=== PATIENT | male | born 1935 | race Caucasian/White ===

== ENCOUNTER 2023-07-28 16:06 | Inpatient (IN) ==
[2023-07-28 16:48] LABS: ABS Lymphocytes 0.5 10^3/uL (1.0-4.8); ABS Monocytes 0.7 10^3/uL (0.0-1.1); ABS Neutrophils 12.4 10^3/uL (1.5-7.6); ABS Nucleated RBC 0.01 10^3/ul; Eosinophil % 0.1 %; Hematocrit 40.3 % (38-53); Hemoglobin 13.3 g/dL (13.2-16.3); Lymphocyte % 3.8 %; Mean Corpuscular Hemoglobin 32.8 pg (27-33); Mean Corpuscular Hgb Conc 33.2 g/dL (31-36); Mean Corpuscular Volume 99.1 fL (80-97); Mean Platelet Volume 8.4 fL (7.5-11.2); Platelet Count 189 10^3/uL (150-450); Red Blood Count 4.06 10^6/uL (4.06-5.63); Red Cell Distribution Width 14.4 % (12-17); White Blood Count 13.7 10^3/uL (3.6-10.2)
[2023-07-28 16:56] LABS: INR 1.15 (0.83-1.13)
[2023-07-28 17:09] LABS: Albumin 4.2 g/dL (3.2-5.2); Albumin/Globulin Ratio 1.4 (1-3); C Reactive Protein 218.31 mg/L (<8.01); Calcium 9.4 mg/dL (8.6-10.3); Creatinine, Serum 2.18 mg/dL (0.67-1.17); Potassium 4.7 mmol/L (3.5-5.0); Total Bilirubin 0.8 mg/dL (0.2-1.0); Total Protein 7.2 g/dL (6.4-8.9); eGFR CKD-EPI 28.2 (>60)
[2023-07-28 18:20] LABS: Urine Appearance Cloudy; Urine Bilirubin Negative (Negative); Urine Blood Negative (Negative); Urine Color Amber; Urine Glucose 3+(>=500 mg/dL) (Negative); Urine Ketones Negative (Negative); Urine Nitrite Negative (Negative); Urine Protein 1+(30 mg/dL) (Negative); Urine Specific Gravity 1.016 (1.002-1.030); Urine Urobilinogen Negative (Negative)
[2023-07-28 18:29] LABS: Urine Bacteria Absent (Absent); Urine Red Blood Cell Trace(0-2/hpf) (Absent); Urine Squamous Epithelial Cell Present (Absent); Urine White Blood Cell Trace(0-5/hpf) (Absent)
[2023-07-28 18:31] LABS: High Sensitivity Troponin 1 Hr 16 pg/mL (<20)
[2023-07-28] MEDS ORDERED: Vancomycin 1,000 MG in NS 0.9% 250 ml 250 ML IVPB ONE (20:03)
[2023-07-28] MEDS: Enoxaparin 30 MG/0.3 ML SYR SUBCUT SCH (21:42)
[2023-07-28] MEDS ORDERED: Dextrose 50% Syringe 50 ml 25 GM/50 ML SYRINGE IV PUSH PRN (22:12)
[2023-07-28] MEDS ORDERED: cefTRIAXone 1 gm/50 mL D5W 1 GM/50 ML BAG IV SCH (22:15)
[2023-07-29 09:21] LABS: Blood Urea Nitrogen 41 mg/dL (6-24); CO2 Carbon Dioxide 15 mmol/L (22-32); Calcium 8.5 mg/dL (8.6-10.3); Chloride 108 mmol/L (101-111); Creatinine, Serum 1.78 mg/dL (0.67-1.17); Glucose 139 mg/dL (70-100); Sodium 133 mmol/L (135-145)
[2023-07-29] MEDS: PTO:DAPAGLIFLOZIN 10 MG TAB (NF) PO SCH (10:00)
[2023-07-29 10:03] LABS: Anion Gap 10 mmol/L (2-16)
[2023-07-29] MEDS ORDERED: Lactated Ringers 1000 ml BAG 500 ML IV ONE (10:25)
[2023-07-29 10:33] LABS: ABS Lymphocytes 0.5 10^3/uL (1.0-4.8); ABS Monocytes 0.5 10^3/uL (0.0-1.1); ABS Neutrophils 8.9 10^3/uL (1.5-7.6); Eosinophil % 0.2 %; Hematocrit 35.6 % (38-53); Lymphocyte % 5.1 %; Mean Corpuscular Hgb Conc 33.6 g/dL (31-36); Mean Corpuscular Volume 98.3 fL (80-97); Mean Platelet Volume 8.4 fL (7.5-11.2); Platelet Count 155 10^3/uL (150-450); Red Blood Count 3.63 10^6/uL (4.06-5.63); Red Cell Distribution Width 14.4 % (12-17); White Blood Count 9.9 10^3/uL (3.6-10.2)
[2023-07-29 10:50] LABS: Magnesium 1.6 mg/dL (1.9-2.7); Potassium Redraw 4.2 mmol/L (3.5-5.0)
[2023-07-29] MEDS: Clotrimazole 1% CREAM 30 gm TOPICAL SCH ×2 (12:09→20:44)
[2023-07-29] MEDS: Lactated Ringers 1000 ml BAG 1,000 ML IV SCH (16:07)
[2023-07-29] MEDS: cefTRIAXone 1 gm/50 mL D5W 1 GM/50 ML BAG IV SCH (20:23)
[2023-07-29] MEDS: Enoxaparin 30 MG/0.3 ML SYR SUBCUT SCH (20:24)
[2023-07-30] MEDS: Lactated Ringers 1000 ml BAG 1,000 ML IV SCH (02:53)
[2023-07-30 07:27] LABS: Calcium 8.6 mg/dL (8.6-10.3); Creatinine, Serum 1.68 mg/dL (0.67-1.17); Potassium 4.1 mmol/L (3.5-5.0); eGFR CKD-EPI 38.6 (>60)
[2023-07-30 07:31] LABS: ABS Eosinophils 0.1 10^3/uL (0.0-0.5); ABS Lymphocytes 0.8 10^3/uL (1.0-4.8); ABS Monocytes 0.5 10^3/uL (0.0-1.1); ABS Neutrophils 6.3 10^3/uL (1.5-7.6); Eosinophil % 1.3 %; Hematocrit 35.2 % (38-53); Hemoglobin 11.9 g/dL (13.2-16.3); Lymphocyte % 10.4 %; Mean Corpuscular Hemoglobin 33.3 pg (27-33); Mean Corpuscular Hgb Conc 33.7 g/dL (31-36); Mean Corpuscular Volume 98.7 fL (80-97); Mean Platelet Volume 8.4 fL (7.5-11.2); Platelet Count 165 10^3/uL (150-450); Red Blood Count 3.57 10^6/uL (4.06-5.63); Red Cell Distribution Width 14.3 % (12-17); White Blood Count 7.7 10^3/uL (3.6-10.2)
[2023-07-30] MEDS: PTO:DAPAGLIFLOZIN 10 MG TAB (NF) PO SCH (08:27)
[2023-07-30 08:52] LABS: C Reactive Protein 160.91 mg/L (<8.01)
[2023-07-30] MEDS: Clotrimazole 1% CREAM 30 gm TOPICAL SCH ×2 (12:33→19:45)
[2023-07-30] MEDS: cefTRIAXone 1 gm/50 mL D5W 1 GM/50 ML BAG IV SCH (21:46)
[2023-07-30] MEDS: Enoxaparin 30 MG/0.3 ML SYR SUBCUT SCH (21:46)
[2023-07-31] MEDS: Clotrimazole 1% CREAM 30 gm TOPICAL SCH (08:20)
[2023-07-31] MEDS: PTO:DAPAGLIFLOZIN 10 MG TAB (NF) PO SCH (08:20)
[2023-07-31 14:22] VITALS: BP 122/75
[2023-07-31] MEDS ORDERED: cefTRIAXone 1 gm/50 mL D5W 1 GM/50 ML BAG IV ONE ×2 (16:00→21:00)
[2023-08-03 16:53] LABS: Anaplasma phagocytophilum Negative (Negative); B. miyamotoi PCR, B Negative (Negative); Babesia divergens/MO-1 Negative (Negative); Babesia ducani Negative (Negative); Ehrlichia chaffeensis Negative (Negative); Ehrlichia ewingii/canis Negative (Negative); Ehrlichia muris eauclairensis Negative (Negative)
== END 2023-07-31 17:36 | disposition home or self-care (01) | DRG 872 ==
LOC: ED 16:06 → EDHOLD 16:06 → SUATTDRO 21:22 → EDHOLD 07-29 13:46 → MED 07-29 14:21 → SUATTDRO 07-30 11:20
PROVIDERS: ADMIT Student in an Organized Health Care Education/Training Program; ATTEND Internal Medicine